=== PATIENT | male | born 1995 | race Asian ===

== ENCOUNTER 2019-04-21 20:59 | Emergency (ER) | payer OTHER ==
--- NOTE | 2019-04-21 22:24 | ED ---
Head Injury - HPI Summary HPI Summary: 23-year-old female presents with head injury today. He states that he was snowboarding and ended up slipping and hitting his head. Was wearing a helmet. Denies loss consciousness. Denies any nausea or vomiting. He states that he feels dizzy. States has had a concussion in the past. He denies any headache currently. He states this mild dizziness is similar to when he had a concussion past. He denies any neck pain. No other injury. - History Of Current Complaint Chief Complaint: EDHeadInjury Stated Complaint: HEAD INJURY Time Seen by Provider: 04/21/19 22:05 Pain Intensity: 1 - Allergies/Home Medications Allergies/Adverse Reactions: Allergies Allergy/AdvReac Type Severity Reaction Status Date / Time No Known Allergies Allergy Verified 04/21/19 21:03 PMH/Surg Hx/FS Hx/Imm Hx Endocrine/Hematology History: Denies: Hx Anticoagulant Therapy Respiratory History: Denies: Hx Asthma Infectious Disease History: No Infectious Disease History: Denies: Traveled Outside the in Last 30 Days - Family History Known Family History: Positive: Non-Contributory - Social History Alcohol Use: Occasionally Substance Use Type: Reports: None Smoking Status (MU): Never Smoked Tobacco Review of Systems Negative: Fever Negative: Chest Pain Negative: Shortness Of Breath Negative: Vomiting, Nausea Positive: Headache All Other Systems Reviewed And Are Negative: Yes Physical Exam Triage Information Reviewed: Yes Vital Signs On Initial Exam: Initial Vitals Temp Pulse Resp BP Pulse Ox 98.3 F 67 16 145/75 98 04/21/19 21:02 04/21/19 21:02 04/21/19 21:02 04/21/19 21:02 04/21/19 21:02 Vital Signs Reviewed: Yes Appearance: Positive: Well-Appearing Skin: Positive: Warm, Dry Head/Face: Positive: Normal Head/Face Inspection Eyes: Positive: Normal, EOMI, MERCEDES, Conjunctiva Clear ENT: Positive: Normal ENT inspection, Pharynx normal, TMs normal Neck: Positive: Other: - nontender neck, full ROM neck Respiratory/Lung Sounds: Positive: Clear to Auscultation, Breath Sounds Present Cardiovascular: Positive: Normal, RRR Musculoskeletal: Positive: Normal Neurological: Positive: Sensory/Motor Intact, Alert, Oriented to Person Place, Time, CN Intact II-III, Finger to Nose Psychiatric: Positive: Normal - Carmelo Coma Scale Best Eye Response: 4 - Spontaneous Best Motor Response: 6 - Obeys Commands Best Verbal Response: 5 - Oriented Coma Scale Total: 15 Procedures - Sedation Patient Received Moderate/Deep Sedation with Procedure: No Diagnostics - Vital Signs Vital Signs Temp Pulse Resp BP Pulse Ox 04/21/19 21:02 98.3 F 67 16 145/75 98 - Laboratory Lab Statement: Any lab studies that have been ordered have been reviewed, and results considered in the medical decision making process. Head Injury Course/Dx Course Of Treatment: 23-year-old female presents with head injury today. He states that he was snowboarding and ended up slipping and hitting his head. Was wearing a helmet. Denies loss consciousness. Denies any nausea. or vomiting. He states that he feels dizzy. States has had a concussion in the past. He denies any headache currently. He states this mild dizziness is similar to when he had a concussion past. He denies any neck pain. No other injury. On exam has a normal neuro exam. According to [employer] [facility] rules does not need any imaging. Gave head injury precautions. Told to follow-up [facility]. Patient understands and agrees plan. - Diagnoses Differential Diagnosis/HQI/PQRI: Concussion Without LOC, Contusion, Intracranial Bleed Provider Diagnoses: Head injury Discharge ED - Sign-Out/Discharge Documenting (check all that apply): Patient Departure - Discharge Plan Condition: Good Disposition: HOME Patient Education Materials: Head Injury (ED) Referrals: [facility] [Primary Care Provider] - Additional Instructions: Take Tylenol or ibuprofen for headache every 6 hours Modify activities as tolerated Follow up with [facility] within 5 days Return to ED if develop vomiting, severe headache, or any new or worsening symptoms - Billing Disposition and Condition Condition: GOOD Disposition: Home
[2019-04-21 22:29] VITALS: BP 121/72
== END 2019-04-21 22:27 | disposition home or self-care (01) ==
LOC: ED 20:59
DX: S09.90XA Unspecified injury of head, initial encounter (principal); W19.XXXA Unspecified fall, initial encounter; Y93.23 Activity, snow (alpine) (downhill) skiing, snowboarding, sledding, tobogganing and snow tubing; Y92.9 Unspecified place or not applicable
CPT/HCPCS: 99281